=== PATIENT | male | born 1965 | race African-American/Black ===

== ENCOUNTER 2018-08-26 10:44 | Inpatient (IN) | payer MEDICARE, OTHER ==
[~2018-08-26] VITALS: Ht 185.4 cm; Wt 227.7 kg
[2018-08-26 11:17] LABS: BASOPHILS % 0.5 % (0.0-2.0); EOSINOPHILS % 0.9 % (0.0-5.0); HEMATOCRIT. 42.4 % (42.0-52.0); HEMOGLOBIN. 14.1 g/dL (14.0-18.0); LYMPHOCYTES % 11.3 % (20.0-50.0); MEAN CORPUSCULAR HEMOGLOBIN 31.1 pg (28.0-32.0); MEAN CORPUSCULAR VOLUME 93.7 fL (80.0-94.0); MEAN PLATELET VOLUME 10.4 fl (7.4-10.4); MONOCYTES % 5.8 % (2.0-8.0); NEUTROPHILS % 81.5 % (40.0-76.0); PLATELET 205 x1000/uL (130-400); RED BLOOD CELL COUNT 4.52 mill/uL (4.7-6.1); RED CELL DISTRIBUTION WIDTH 16.1 % (11.6-14.6)
[2018-08-26 11:23] LABS: CHLORIDE 110 mEq/L (98-107)
[2018-08-26] MEDS ORDERED: FUROSEMIDE 40MG/4ML VIAL IVP ONE (13:00)
[2018-08-26] MEDS ORDERED: CLONIDINE 0.1MG TABLET PO PRN (15:30)
[2018-08-26] MEDS ORDERED: ONDANSETRON HCL 4MG/2ML INJ IV PRN (15:30)
[2018-08-26] MEDS ORDERED: ACETAMINOPHEN 325MG TABLET PO PRN (15:30)
[2018-08-26 16:26] LABS: *AMPHETAMINES SCREEN URINE NEGATIVE (NEGATIVE); *BARBITURATES SCREEN URINE NEGATIVE (NEGATIVE); *BENZODIAZEPINES SCREEN URINE NEGATIVE (NEGATIVE); *COCAINE SCREEN URINE NEGATIVE (NEGATIVE); METHADONE URINE SCREEN NEGATIVE (NEGATIVE)
[2018-08-26 16:28] LABS: CANNABINOID URINE SCREEN NEGATIVE (NEGATIVE); PHENCYCLIDINE URINE SCREEN NEGATIVE (NEGATIVE)
[2018-08-26 16:30] VITALS: BP 139/87
[2018-08-26 16:30] LABS: OPIATES URINE SCREEN NEGATIVE (NEGATIVE)
[2018-08-26] MEDS ORDERED: ENAL5TAB PO (17:33)
[2018-08-26] MEDS ORDERED: FURO-151 PO (17:33)
[2018-08-26] MEDS: LOSARTAN POTASSIUM 50 MG TABLET PO SCH (17:47)
[2018-08-26] MEDS: FUROSEMIDE 40MG/4ML VIAL IVP SCH (17:47)
[2018-08-26] MEDS ORDERED: CLOPIDOGREL 75MG TABLET PO SCH (20:00)
[2018-08-26 20:02] VITALS: BP 150/90
[2018-08-26] MEDS: CARVEDILOL 12.5MG TABLET PO SCH (20:44)
[2018-08-26] MEDS ORDERED: ENOXAPARIN 40MG/0.4ML SYR SUBCUT SCH (21:00)
[2018-08-26] MEDS: ZOLPIDEM TARTRATE 5MG TABLET PO PRN (22:07)
[2018-08-27 00:05] VITALS: BP 165/87
[2018-08-27 04:00] VITALS: BP 129/87
[2018-08-27] MEDS: FUROSEMIDE 40MG/4ML VIAL IVP SCH ×2 (05:42→17:42)
[2018-08-27 07:18] LABS: CHLORIDE 105 mEq/L (98-107)
[2018-08-27 07:24] LABS: BASOPHILS % 0.9 % (0.0-2.0); HEMATOCRIT. 42.8 % (42.0-52.0); LYMPHOCYTES % 15.9 % (20.0-50.0); MEAN CORPUSCULAR HEMOGLOBIN 30.6 pg (28.0-32.0); MEAN CORPUSCULAR VOLUME 93.5 fL (80.0-94.0); MEAN PLATELET VOLUME 10.5 fl (7.4-10.4); MONOCYTES % 6.9 % (2.0-8.0); NEUTROPHILS % 75.3 % (40.0-76.0); PLATELET 208 x1000/uL (130-400); RED BLOOD CELL COUNT 4.57 mill/uL (4.7-6.1); RED CELL DISTRIBUTION WIDTH 15.8 % (11.6-14.6)
[2018-08-27 08:00] VITALS: BP 141/99
[2018-08-27] MEDS: LOSARTAN POTASSIUM 50 MG TABLET PO SCH (09:13)
[2018-08-27] MEDS: CARVEDILOL 12.5MG TABLET PO SCH ×2 (09:13→20:59)
[2018-08-27] MEDS: APIXABAN 5 MG TABLET PO SCH ×2 (09:13→20:59)
[2018-08-27 12:00] VITALS: BP 121/105
[2018-08-27] MEDS: DILTIAZEM HCL 60MG TABLET PO SCH ×2 (14:23→21:00)
[2018-08-27 16:00] VITALS: BP 140/101
[2018-08-27 20:00] VITALS: BP 155/105
[2018-08-27] MEDS: ZOLPIDEM TARTRATE 5MG TABLET PO PRN (22:02)
[2018-08-28] VITALS: BP 112/79
[2018-08-28 04:00] VITALS: BP 143/106
[2018-08-28] MEDS: DILTIAZEM HCL 60MG TABLET PO SCH (05:15)
[2018-08-28] MEDS: FUROSEMIDE 40MG/4ML VIAL IVP SCH ×2 (06:28→17:13)
[2018-08-28 06:49] LABS: BASOPHILS % 0.7 % (0.0-2.0); EOSINOPHILS % 1.9 % (0.0-5.0); HEMATOCRIT. 41.8 % (42.0-52.0); HEMOGLOBIN. 13.9 g/dL (14.0-18.0); LYMPHOCYTES % 18.6 % (20.0-50.0); MEAN CORPUSCULAR HEMOGLOBIN 31.3 pg (28.0-32.0); MEAN CORPUSCULAR VOLUME 93.8 fL (80.0-94.0); MEAN PLATELET VOLUME 11.1 fl (7.4-10.4); MONOCYTES % 5.2 % (2.0-8.0); NEUTROPHILS % 73.6 % (40.0-76.0); PLATELET 169 x1000/uL (130-400); RED BLOOD CELL COUNT 4.45 mill/uL (4.7-6.1); RED CELL DISTRIBUTION WIDTH 15.4 % (11.6-14.6)
[2018-08-28 06:52] LABS: CHLORIDE 107 mEq/L (98-107)
[2018-08-28 08:00] VITALS: BP 157/90
[2018-08-28] MEDS: APIXABAN 5 MG TABLET PO SCH ×2 (09:28→21:02)
[2018-08-28] MEDS: CARVEDILOL 12.5MG TABLET PO SCH ×2 (09:30→21:02)
[2018-08-28 12:00] VITALS: BP 137/74
[2018-08-28] MEDS: DILTIAZEM HCL 90MG TABLET PO SCH ×3 (12:22→23:45)
[2018-08-28 16:00] VITALS: BP 126/75
[2018-08-28 20:00] VITALS: BP 121/70
[2018-08-28] MEDS: ZOLPIDEM TARTRATE 5MG TABLET PO PRN (22:02)
[2018-08-29] VITALS (7 sets, daily range): BP systolic 115–139; BP diastolic 64–93
[2018-08-29] MEDS: FUROSEMIDE 40MG/4ML VIAL IVP SCH (06:18)
[2018-08-29] MEDS: DILTIAZEM HCL 90MG TABLET PO SCH ×2 (06:18→12:00)
[2018-08-29 07:01] LABS: BASOPHILS % 0.6 % (0.0-2.0); EOSINOPHILS % 2.6 % (0.0-5.0); HEMATOCRIT. 44.9 % (42.0-52.0); HEMOGLOBIN. 14.7 g/dL (14.0-18.0); MEAN CORPUSCULAR HEMOGLOBIN 30.7 pg (28.0-32.0); MEAN PLATELET VOLUME 11.2 fl (7.4-10.4); MONOCYTES % 6.1 % (2.0-8.0); NEUTROPHILS % 74.7 % (40.0-76.0); PLATELET 221 x1000/uL (130-400); RED BLOOD CELL COUNT 4.77 mill/uL (4.7-6.1); RED CELL DISTRIBUTION WIDTH 15.2 % (11.6-14.6)
[2018-08-29 07:15] LABS: CHLORIDE 104 mEq/L (98-107)
[2018-08-29] MEDS: APIXABAN 5 MG TABLET PO SCH (09:29)
[2018-08-29] MEDS: CARVEDILOL 12.5MG TABLET PO SCH (09:29)
[2018-08-29] MEDS ORDERED: APIX5TAB PO (12:09)
[2018-08-29] MEDS ORDERED: DILT90TA2 PO (12:09)
[2018-08-29] MEDS ORDERED: COR12 PO (12:09)
== END 2018-08-29 14:45 | disposition home or self-care (01) | DRG 308 ==
LOC: ER 10:44 → 7WST 12:59 → EDBEDREQ 13:00 → ENRESERV 14:15
PROVIDERS: ADMIT Internal Medicine; ATTEND Internal Medicine
PROC: 5A09357 Assistance with Respiratory Ventilation, Less than 24 Consecutive Hours, Continuous Positive Airway Pressure (ICD-10-PCS; principal; 2018-08-26)
PROC: 5A09357 Assistance with Respiratory Ventilation, Less than 24 Consecutive Hours, Continuous Positive Airway Pressure (ICD-10-PCS; 2018-08-27)
PROC: 5A09357 Assistance with Respiratory Ventilation, Less than 24 Consecutive Hours, Continuous Positive Airway Pressure (ICD-10-PCS; 2018-08-28)
PROC: 5A09357 Assistance with Respiratory Ventilation, Less than 24 Consecutive Hours, Continuous Positive Airway Pressure (ICD-10-PCS; 2018-08-29)
DX: I48.92 Unspecified atrial flutter (principal); I50.43 Acute on chronic combined systolic (congestive) and diastolic (congestive) heart failure; G45.9 Transient cerebral ischemic attack, unspecified; E44.1 Mild protein-calorie malnutrition; Z68.44 Body mass index [BMI] 60.0-69.9, adult; I11.0 Hypertensive heart disease with heart failure; I48.91 Unspecified atrial fibrillation; E66.01 Morbid (severe) obesity due to excess calories; E87.8 Other disorders of electrolyte and fluid balance, not elsewhere classified; E78.5 Hyperlipidemia, unspecified; I44.30 Unspecified atrioventricular block; Z79.899 Other long term (current) drug therapy; Z71.3 Dietary counseling and surveillance
CPT/HCPCS: 36415; 71045; 80048; 80061; 80305; 82962; 83036; 83880; 84443; 84484; 93005; 93308; 93970; 94660; 96374; 97162; 97166; 99285; J1650; J1940

== ENCOUNTER 2018-08-30 17:36 | Emergency (ER) | payer MEDICARE ==
[~2018-08-30] VITALS: Ht 182.9 cm; Wt 274.0 kg
[~2018-08-30 17:36] MED LIST: APIX5TAB PO; COR12 PO; DILT90TA2 PO; ENAL5TAB PO; FURO-151 PO
[2018-08-30 18:07] LABS: BASOPHILS % 0.4 % (0.0-2.0); EOSINOPHILS % 1.8 % (0.0-5.0); HEMATOCRIT. 39.7 % (42.0-52.0); HEMOGLOBIN. 13.6 g/dL (14.0-18.0); LYMPHOCYTES % 12.5 % (20.0-50.0); MEAN CORPUSCULAR HEMOGLOBIN 31.3 pg (28.0-32.0); MONOCYTES % 7.7 % (2.0-8.0); NEUTROPHILS % 77.6 % (40.0-76.0); PLATELET 250 x1000/uL (130-400); RED BLOOD CELL COUNT 4.36 mill/uL (4.7-6.1)
[2018-08-30 18:12] LABS: INR 1.3; PROTHROMBIN TIME 13.2 sec (9.6-11.0)
[2018-08-30 19:39] LABS: CHLORIDE 104 mEq/L (98-107)
[2018-08-30 19:43] LABS: ETHANOL BLOOD < 10 mg/dL
[2018-08-30 19:46] LABS: LDL CHOLESTEROL 95 mg/dL (5-100)
[2018-08-30 19:49] LABS: CLARITY URINE CLEAR (CLEAR); COLOR URINE DARK YELLOW (YELLOW); KETONES URINE TRACE (NEGATIVE); LEUKOCYTE ESTERASE URINE NEGATIVE (NEGATIVE); NITRITE URINE NEGATIVE (NEGATIVE); OCCULT BLOOD URINE NEGATIVE (NEGATIVE); PROTEIN URINE NEGATIVE (NEGATIVE); SPECIFIC GRAVITY URINE 1.023 (1.005-1.030)
[2018-08-30 20:10] LABS: *AMPHETAMINES SCREEN URINE NEGATIVE (NEGATIVE); *BARBITURATES SCREEN URINE NEGATIVE (NEGATIVE)
[2018-08-30 20:11] LABS: *BENZODIAZEPINES SCREEN URINE NEGATIVE (NEGATIVE); *COCAINE SCREEN URINE NEGATIVE (NEGATIVE); CANNABINOID URINE SCREEN NEGATIVE (NEGATIVE); METHADONE URINE SCREEN NEGATIVE (NEGATIVE); OPIATES URINE SCREEN NEGATIVE (NEGATIVE); PHENCYCLIDINE URINE SCREEN NEGATIVE (NEGATIVE)
[2018-08-31] MEDS ORDERED: ASPIRIN 81MG TABLET PO ONE (08:15)
[2018-08-31 12:15] LABS: CLARITY URINE CLEAR (CLEAR); COLOR URINE YELLOW (YELLOW); KETONES URINE NEGATIVE (NEGATIVE); LEUKOCYTE ESTERASE URINE NEGATIVE (NEGATIVE); NITRITE URINE NEGATIVE (NEGATIVE); OCCULT BLOOD URINE 3+ (NEGATIVE); PROTEIN URINE NEGATIVE (NEGATIVE); SPECIFIC GRAVITY URINE 1.024 (1.005-1.030)
[2018-09-01 04:51] VITALS: BP 164/86
== END 2018-09-01 05:01 | disposition short-term general hospital (02) ==
LOC: ER 17:48 → CANBEDREQ 09-01 10:16
DX: G45.9 Transient cerebral ischemic attack, unspecified (principal); I10 Essential (primary) hypertension; I48.91 Unspecified atrial fibrillation; E78.5 Hyperlipidemia, unspecified; E66.01 Morbid (severe) obesity due to excess calories; Z68.45 Body mass index [BMI] 70 or greater, adult; Z75.1 Person awaiting admission to adequate facility elsewhere; Z79.899 Other long term (current) drug therapy; Z79.01 Long term (current) use of anticoagulants
CPT/HCPCS: 36415; 71045; 80305; 80320; 82962; 83721; 84484; 93005; 99285; G0480